=== PATIENT | male | born 1980 | race African-American/Black ===

== ENCOUNTER 2016-09-07 05:34 | Emergency (ER) | payer SELFPAY ==
[~2016-09-07] VITALS: Ht 188 cm; Wt 92.1 kg
[2016-09-07 05:39] VITALS: BP 125/84
== END 2016-09-07 08:32 | disposition home or self-care (01) ==
LOC: ED 05:34
DX: S52.592A Other fractures of lower end of left radius, initial encounter for closed fracture (principal); Y09 Assault by unspecified means; Y93.89 Activity, other specified; Y92.89 Other specified places as the place of occurrence of the external cause; Y99.8 Other external cause status
CPT/HCPCS: Q0092